=== PATIENT | female | born 1995 | race Caucasian/White ===

== ENCOUNTER 2016-02-28 07:33 | Day surgery (SDC) | payer OTHER ==
[2016-02-28 08:40] LABS: HEMATOCRIT 37.1 % (36.0-47.0); HEMOGLOBIN 12.9 g/dL (12.0-15.5); HGB HCT DIFFERENCE 1.6; MEAN CORPUSCULAR HEMOGLOBIN 29.5 pg (27.0-33.4); MEAN CORPUSCULAR HGB CONC 34.7 g/dL (32.0-36.0); MEAN CORPUSCULAR VOLUME 85 fl (80-97); RED BLOOD COUNT 4.35 10^6/uL (3.72-5.28); RED CELL DISTRIBUTION WIDTH 13.4 % (11.5-14.0); WHITE BLOOD COUNT 7.1 10^3/uL (4.0-10.5)
[2016-02-28] MEDS ORDERED: PROMETHAZINE HCL INJ 25 MG/1 ML VIAL IV PRN (08:40)
[2016-02-28] MEDS ORDERED: DIPHENHYDRAMINE HCL 50 MG/ML VIAL IV PRN (08:40)
[2016-02-28] MEDS ORDERED: MEPERIDINE HCL/PF INJ 25 MG/1 ML DISP.SYRIN IV PRN (08:40)
[2016-02-28] MEDS ORDERED: FENTANYL CITRATE INJ/PF 100 MCG/2 ML AMPUL IV PRN ×3 (08:40)
[2016-02-28] MEDS ORDERED: RINGERS SOLUTION,LACTATED 1,000 ML IV PRN (08:59)
[2016-02-28] MEDS ORDERED: MORPHINE SULFATE 10 MG/ML INJ IM PRN (09:00)
[2016-02-28] MEDS ORDERED: IBUPROFEN 800 MG TABLET PO PRN (09:00)
[2016-02-28] MEDS ORDERED: OXYCODONE-ACETAMINOPHEN 5-325 MG TABLET PO PRN ×2 (09:01)
[2016-02-28] MEDS ORDERED: METHYLERGONOVINE MALEATE INJ/PF 0.2 MG/1 ML AMPULE ONE (09:07)
[2016-02-28] MEDS ORDERED: MIDAZOLAM 2 MG/2 ML INJ ONE (09:10)
[2016-02-28] MEDS ORDERED: KETAMINE HCL INJ 500 MG/10 ML VIAL ONE (09:10)
[2016-02-28] MEDS ORDERED: FENTANYL CITRATE INJ/PF 100 MCG/2 ML AMPUL ONE (09:10)
[2016-02-28] MEDS ORDERED: PROPOFOL INJ 200 MG/20 ML VIAL IV ONE (09:10)
[2016-02-28] MEDS ORDERED: ONDANSETRON HCL INJ/PF 4 MG/2 ML SDV ONE (09:12)
[2016-02-28 15:16] VITALS: BP 99/63
--- NOTE | 2016-04-01 09:15 | OPERATIVE REPORT E ---
Operative Report NAME: SAVAGE CHESTER : 1995 AGE: 21Y DATE OF SURGERY: 02/28/2016 ROOM: PREOPERATIVE DIAGNOSIS: A 10 WEEK MISSED . POSTOPERATIVE DIAGNOSIS: A 10 WEEK MISSED . OPERATION: Suction dilatation and curettage. SURGEON: Haile Saha D.O. ANESTHESIA: General endotracheal anesthesia. COMPLICATIONS: None. TISSUE REMOVED OR ALTERED: Large amounts of products of conception. ESTIMATED BLOOD LOSS: 100 mL. FINDINGS: 1. Uterus sounded to 9 cm. 2. Large amount of products of conception. PROCEDURE: The patient was taken to the operating room where she was placed in the dorsal supine position upon the operating room table. She was then administered her general endotracheal anesthesia. Once this was done, she was placed in the dorsal lithotomy position with Helio stirrups. She was then prepped and draped in the normal sterile fashion. An open-sided speculum was then placed inside the patient's vagina. The cervix was easily visualized and grasped along the anterior lip with a single-tooth tenaculum. The uterus was then sounded to the 9 cm. The cervix was then dilated to a 28-Spanish using the Hegar dilators. Using a #8 suction curette, a suction curettage was performed which revealed a large amount of products of conception. This was continued several times until there were no more products of conception removed. Suction curette was then removed and there was excellent hemostasis noted. The single-tooth tenaculum and the speculum were then removed from the patient's vagina. Again, the patient was observed for approximately another 5 to 6 minutes and there was excellent hemostasis noted. At this point in time, the procedure was terminated. All sponge, lap, and needle counts were correct x2. The patient tolerated the procedure well. The patient was taken to the recovery room in stable condition. DICTATING PHYSICIAN: Haile Saha DO [id number] PHY#: [id number] ID: [id number] JOB#: [id number] ACCT: [id number] cc:Haile Saha D.O. >
== END 2016-02-28 12:40 | disposition home or self-care (01) ==
LOC: OROUT 07:33
PROVIDERS: ATTEND Obstetrics & Gynecology
PROC: 10E0XZZ Delivery of Products of Conception, External Approach (ICD-10-PCS; principal; 2016-02-28 08:45)
DX: O02.1 Missed abortion (principal)
CPT/HCPCS: 86900; 86901; 36415; 86850; 85027; 88305 ×2; 59820; J2790; J2250; J3010; J2405; J2704; 952; J2210; J3490

== ENCOUNTER 2017-09-07 09:21 | Day surgery (SDC) | payer OTHER ==
[2017-09-07 10:14] LABS: APPEARANCE,URINE SLIGHTLY-CLOUDY; BILIRUBIN,URINE NEGATIVE (NEGATIVE); COLOR,URINE YELLOW; GLUCOSE, URINE NEGATIVE (NEGATIVE); KETONES,URINE NEGATIVE (NEGATIVE); LEUKOCYTE ESTERASE,URINE LARGE (NEGATIVE); NITRITE,URINE NEGATIVE (NEGATIVE); PROTEIN,URINE NEGATIVE (NEGATIVE); URINE SPECIFIC GRAVITY 1.024
[2017-09-07 11:01] LABS: HEMATOCRIT 35.3 % (36.0-47.0); HEMOGLOBIN 12.3 g/dL (12.0-15.5); MEAN CORPUSCULAR HEMOGLOBIN 30.4 pg (27.0-33.4); MEAN CORPUSCULAR HGB CONC 34.9 g/dL (32.0-36.0); MEAN CORPUSCULAR VOLUME 87 fl (80-97); PLATELET COUNT 237 10^3/uL (150-450); RED BLOOD COUNT 4.06 10^6/uL (3.72-5.28); RED CELL DISTRIBUTION WIDTH 13.3 % (11.5-14.0); WHITE BLOOD COUNT 6.6 10^3/uL (4.0-10.5)
[2017-09-07] MEDS ORDERED: FENTANYL CITRATE INJ/PF 100 MCG/2 ML AMPUL ONE (11:47)
[2017-09-07] MEDS ORDERED: LIDOCAINE 2% INJ-PF (20 MG/ML) 10 ML AMPUL ONE (11:47)
[2017-09-07] MEDS ORDERED: DEXAMETHASONE SOD PHOSPHATE INJ 4 MG/1 ML VIAL ONE (11:48)
[2017-09-07] MEDS ORDERED: PROPOFOL INJ 200 MG/20 ML VIAL IV ONE ×2 (11:48→11:59)
[2017-09-07] MEDS ORDERED: ONDANSETRON HCL INJ/PF 4 MG/2 ML SDV ONE (11:48)
[2017-09-07] MEDS ORDERED: MIDAZOLAM 2 MG/2 ML INJ ONE (11:48)
[2017-09-07] MEDS ORDERED: MEPERIDINE HCL/PF INJ 25 MG/1 ML DISP.SYRIN IV PRN (12:25)
[2017-09-07] MEDS ORDERED: MORPHINE SULFATE 10 MG/ML INJ IV PRN (12:25)
[2017-09-07] MEDS ORDERED: PROMETHAZINE HCL INJ 25 MG/1 ML VIAL IV PRN (12:25)
[2017-09-07] MEDS ORDERED: DIPHENHYDRAMINE HCL 50 MG/ML VIAL IV PRN (12:25)
[2017-09-07] MEDS ORDERED: FENTANYL CITRATE INJ/PF 100 MCG/2 ML AMPUL IV PRN ×3 (12:25)
--- NOTE | 2017-09-07 12:36 | Operative Report ---
Operative Report DATE OF SURGERY: 09/07/17 PREOPERATIVE DIAGNOSIS: Missed AB POSTOPERATIVE DIAGNOSIS: Same OPERATION: Suction D&C SURGEON: ELEANOR KAPLAN ANESTHESIA: GA TISSUE REMOVED OR ALTERED: Uterine contents COMPLICATIONS: None ESTIMATED BLOOD LOSS: 125 cc INTRAOPERATIVE FINDINGS: Sound 12 cm before 10 cm after the case PROCEDURE: Patient was taken the OR and placed in supine position. General anesthesia was induced. She was placed in dorsolithotomy position using Helio stirrups. Perineum and vagina were prepared and draped in sterile fashion. Her bladder was drained with a red rubber catheter. A weighted speculum was placed in the anterior lip cervix was grasped with tenaculum. Uterus sounded to 12 cm before the case and 10 cm after the case. The cervix was gently dilated allowing a 12 suction curette to be used to evacuate the uterine contents. There is a large return of tissue. Exploration of the uterus after the suction curettage with stone polyp forceps showed no return pain tissue. A gentle sharp curettage was performed. There were no retained products of conceptions found. Once again the sound was 10 cm at the end of the case. All instruments were removed she is placed back in supine position taken recovery in stable condition. The specimen was sent fresh so that chromosomes can be analyzed.
[2017-09-07] MEDS ORDERED: RINGERS SOLUTION,LACTATED 1,000 ML IV PRN (12:45)
[2017-09-07] MEDS ORDERED: KETOROLAC TROMETHAMINE INJ/PF 30 MG/1 ML SDV IV PRN (12:45)
[2017-09-07] MEDS ORDERED: IBUPROFEN 800 MG TABLET PO PRN (12:46)
[2017-09-07] MEDS ORDERED: OXYCODONE-ACETAMINOPHEN 5-325 MG TABLET PO PRN ×2 (12:46)
[2017-09-07 14:48] VITALS: BP 106/69
== END 2017-09-07 14:15 | disposition home or self-care (01) ==
LOC: OROUT 09:21
PROVIDERS: ATTEND Obstetrics & Gynecology
DX: O02.1 Missed abortion (principal)
CPT/HCPCS: 36415; 85027; 81001; 88233; 88262; 88305 ×2; 59820; J2250; J1100; J3010; J1885; J2405; J2704; J3490; 1965

== ENCOUNTER 2018-03-07 12:30 | Emergency (ER) | payer OTHER ==
--- NOTE | 2018-03-07 13:57 | ER Document Report ---
ED Hand/Wrist Injury - General Chief Complaint: Finger Injury Stated Complaint: FINGER INJURY Time Seen by Provider: 03/07/18 13:54 Mode of Arrival: Ambulatory Information source: Patient TRAVEL OUTSIDE OF THE [place] IN LAST 30 DAYS: No - HPI Patient complains to provider of: L hand pain Injury to: Middle finger - pt. had heavy piece of machinery land on L hand at work yesterday. C/o pain L middle finger. - Related Data Allergies/Adverse Reactions: oranges Allergy (Severe, Uncoded 04/17/13 21:17) Anaphylactoid Past Medical History - General Information source: Patient - Social History Smoking Status: Never Smoker Chew tobacco use (# tins/day): No Frequency of alcohol use: Occasional Drug Abuse: None Family History: None Patient has suicidal ideation: No Patient has homicidal ideation: No - Past Medical History Cardiac Medical History: Denies: Hx Coronary Artery Disease, Hx Heart Attack, Hx Hypertension Pulmonary Medical History: Denies: Hx Asthma, Hx Bronchitis, Hx COPD, Hx Pneumonia Neurological Medical History: Denies: Hx Cerebrovascular Accident, Hx Seizures Renal/ Medical History: Denies: Hx Peritoneal Dialysis Musculoskeletal Medical History: Denies Hx Arthritis - Immunizations Hx Diphtheria, Pertussis, Tetanus Vaccination: Yes Review of Systems - Review of Systems Constitutional: No symptoms reported EENT: No symptoms reported Cardiovascular: No symptoms reported Respiratory: No symptoms reported Gastrointestinal: No symptoms reported Musculoskeletal: See HPI, Other - L long finger pain Physical Exam - Vital signs Vitals: Temp Pulse Resp BP Pulse Ox 98.5 F 66 16 104/63 98 03/07/18 12:49 03/07/18 12:49 03/07/18 12:49 03/07/18 12:49 03/07/18 12:49 - General General appearance: Appears well In distress: None - Respiratory Respiratory status: No respiratory distress Breath sounds: Normal - Cardiovascular Rhythm: Regular Heart sounds: Normal auscultation - Extremities Hand: Tender - Tenderness to L long finger especially middle and distal phalanx with no STS. FROM of digit; N/V intact Course - Vital Signs Vital signs: Temp Pulse Resp BP Pulse Ox 98.5 F 66 16 104/63 98 03/07/18 12:49 03/07/18 12:49 03/07/18 12:49 03/07/18 12:49 03/07/18 12:49 - Diagnostic Test Radiology reviewed: Reports reviewed - neg fx Procedures - Immobilization Left Hand 3rd digit Pre-Proc Neuro Vasc Exam: Normal Immobilizer type: Finger splint (Static) Performed by: RN Post-Proc Neuro Vasc Exam: Normal Alignment checked and good: Yes Discharge - Discharge Clinical Impression: Contusion of finger of left hand Qualifiers: Encounter type: initial encounter Finger: middle finger Damage to nail status: without damage Qualified Code(s): S60.032A - Contusion of left middle finger without damage to nail, initial encounter Condition: Stable Disposition: HOME, SELF-CARE Additional Instructions: rest, ice, elevate, use splint, return if worse Prescriptions: Tramadol HCl [Ultram 50 mg Tablet] 50 mg PO ASDIR PRN #20 tablet PRN Reason: Referrals: THEA HOGUE [Primary Care Provider] - Follow up as needed SANDIE FREIRE MD [ACTIVE STAFF] - Follow up as needed
--- NOTE | 2018-03-07 14:17 | RADIOLOGY REPORT (SQ) ---
EXAM DESCRIPTION: FINGER LEFT COMPLETED DATE/TIME: 03/07/2018 2:05 pm REASON FOR STUDY: Injury, bruising to left middle finger COMPARISON: None. NUMBER OF VIEWS: Three views. TECHNIQUE: AP, lateral, and oblique images acquired of the left third finger. LIMITATIONS: None. FINDINGS: MINERALIZATION: Normal. BONES: No acute fracture or dislocation. No worrisome bone lesions. SOFT TISSUES: No soft tissue swelling. No foreign body. OTHER: No other significant finding. IMPRESSION: NO RADIOGRAPHIC EVIDENCE OF ACUTE INJURY. TECHNICAL DOCUMENTATION: JOB ID: [id number] [employer]- All Rights Reserved Reading location - IP/workstation name: [email or web address]
[2018-03-07 14:50] VITALS: BP 107/58
== END 2018-03-07 14:37 | disposition home or self-care (01) ==
LOC: ER 12:30
DX: S60.032A Contusion of left middle finger without damage to nail, initial encounter (principal); W22.8XXA Striking against or struck by other objects, initial encounter; Y99.0 Civilian activity done for income or pay
CPT/HCPCS: 99283